=== PATIENT | female | born 1965 | race Caucasian/White ===

== ENCOUNTER 2017-05-31 16:19 | Emergency (ER) | payer BC | END 2017-05-31 17:35 | disposition left against medical advice (07) | LOC: UCCORT 16:19 | DX: J02.9 Acute pharyngitis, unspecified (principal); R05 Cough; Z53.21 Procedure and treatment not carried out due to patient leaving prior to being seen by health care provider ==

== ENCOUNTER 2017-06-06 10:20 | Emergency (ER) | payer BC ==
[2017-06-06 10:39] VITALS: BP 128/112
--- NOTE | 2017-06-06 11:23 | UC ---
Respiratory Complaint HPI - HPI Summary HPI Summary: Pt presents with c/o cough, wheezing, chest congestion and SOB with recumbent position. Pt is an asthmatic and smoker. Pt is compliant with prescribed medications. 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 Pt reports improved SOB and wheezing post treatment. - History of Current Complaint Chief Complaint: UCRespiratory Stated Complaint: COUGH,CONGESTION Time Seen by Provider: 06/06/17 10:43 Hx Obtained From: Patient ?: No Onset/Duration: Gradual Onset, Lasting Weeks - 1, Worse Since - onset Timing: Constant Severity Initially: Mild Severity Currently: Mild Pain Intensity: 0 Pain Scale Used: 0-10 Numeric Character: Cough: Nonproductive Aggravating Factors: Exertion, Deep Breaths, Recumbent Position Alleviating Factors: Other - nebulizer treatment Associated Signs And Symptoms: Positive: Wheezing, URI, Nasal Congestion - Risk Factors Pulmonary Embolism Risk Factors: Smoking Cardiac Risk Factors: Smoking Pseudomonas Risk Factors: Chronic Lung Disease - asthma Tuberculosis Risk Factors: Smoking - Allergies/Home Medications Allergies/Adverse Reactions: Allergies Allergy/AdvReac Type Severity Reaction Status Date / Time Sulfa Antibiotics Allergy Hives Verified 06/06/17 10:32 Home Medications: Home Medications Albuterol HFA INHALER* [Ventolin HFA Inhaler*] 1 - 2 puff INH Q4H PRN 06/06/17 [ History Confirmed 06/06/17] Albuterol/Ipratropium NEB.KAYLEE* [Duoneb (Albuterol 2.5 MG/Ipratropium 0.5 MG)] 1 neb INH ONCE 06/06/17 [History Confirmed 06/06/17] Budesonide/Formote 160/4.5(NF) [Symbicort 160/4.5 (NF)] 2 puff INH BID 06/06/17 [History Confirmed 06/06/17] FLUoxetine CAP* [Prozac CAP*] 40 mg PO DAILY 06/06/17 [History Confirmed ] guaiFENesin ER TAB [Mucinex*] 1,200 mg PO BID PRN 06/06/17 [History Confirmed ] PMH/Surg Hx/FS Hx/Imm Hx Previously Healthy: Yes Respiratory History: Asthma - Surgical History Surgical History: Yes Surgery Procedure, Year, and Place: Quintuple Bypass, 2009, [facility]; Right Knee Arthroscopy, ~1999, [place]; Facial Reconstruction s/p Accident, ~1985, [facility] - Family History Known Family History: Positive: Respiratory Disease - Social History Occupation: Employed Full-time Lives: With Family Alcohol Use: Occasionally Substance Use Type: None Smoking Status (MU): Heavy Every Day Tobacco Smoker Type: Cigarettes Amount Used/How Often: 1/2 PPD Length of Time of Smoking/Using Tobacco: Since Age 18 Have You Smoked in the Last Year: Yes - Immunization History Most Recent Influenza Vaccination: Not the Season Review of Systems Constitutional: Negative Skin: Negative Eyes: Negative ENT: Other - nasal congestion Respiratory: Shortness Of Breath, Cough, Other - wheezing Cardiovascular: Negative Gastrointestinal: Negative Genitourinary: Negative Motor: Negative Neurovascular: Negative Musculoskeletal: Negative Neurological: Negative Psychological: Negative Is Patient Immunocompromised?: No All Other Systems Reviewed And Are Negative: Yes Physical Exam Triage Information Reviewed: Yes Appearance: Ill-Appearing Vital Signs: Initial Vital Signs Temp 97.7 F 06/06/17 10:29 Pulse 76 06/06/17 10:29 Resp 20 06/06/17 10:29 BP 128/112 06/06/17 10:29 Pulse Ox 95 06/06/17 10:29 Vital Signs Reviewed: Yes Eye Exam: Normal ENT Exam: Other ENT: Positive: Nasal congestion Dental: Positive: Gross Decay/Caries @ Neck exam: Normal Respiratory Exam: Other Respiratory: Positive: No respiratory distress, Rhonchi Cardiovascular Exam: Normal Musculoskeletal Exam: Normal Neurological Exam: Normal Psychological Exam: Normal Skin Exam: Normal Diagnostic Evaluation - Laboratory O2 Sat by Pulse Oximetry: 95 Respiratory Course/Dx - Differential Dx/Diagnosis Differential Diagnosis/HQI/PQRI: Asthma, Bronchitis, Other - pneumonia Provider Diagnoses: Bronchitis Discharge - Discharge Plan Condition: Stable Disposition: HOME Prescriptions: Albuterol/Ipratropium NEB.KAYLEE* [Duoneb (Albuterol 2.5 MG/Ipratropium 0.5 MG)] 1 neb INH Q4H PRN #1 box PRN Reason: Sob/Wheezing Azithromycin TAB* [Zithromax TAB (Z-BEN) 250 mg #6 tabs] 2 tab PO .TODAY, THEN 1 DAILY #1 ben Benzonatate CAP* [Tessalon 100 MG CAP*] 100 mg PO TID PRN #30 cap PRN Reason: Cough methylPREDNISolone TAB* [Medrol TAB*] 4 - 8 mg PO .SEE BEN #1 ben Patient Education Materials: Acute Bronchitis (ED) Referrals: Non Staff,Doctor [Medical Doctor] - If Needed
== END 2017-06-06 11:05 | disposition home or self-care (01) ==
LOC: UCCORT 10:20
DX: J45.909 Unspecified asthma, uncomplicated (principal); Z95.1 Presence of aortocoronary bypass graft; F17.210 Nicotine dependence, cigarettes, uncomplicated; Z88.2 Allergy status to sulfonamides
CPT/HCPCS: 99212; G0463

== ENCOUNTER 2018-01-03 17:33 | Emergency (ER) | payer BC ==
[2018-01-03 18:22] VITALS: BP 136/84
[2018-01-03] MEDS ORDERED: predniSONE TAB* 20 MG PO ONE (18:53)
[2018-01-03] MEDS ORDERED: Albuterol/Ipratropium NEB.SOL* Albuterol 2.5 MG/Ipratropium 0.5 MG 3 ML INH ONE (18:53)
--- NOTE | 2018-01-03 18:54 | UC ---
Respiratory Complaint HPI - HPI Summary HPI Summary: Patient is to the urgent care this afternoon with cough and chest tightness sinus fullness pressure has been worsening over the past 5 days. - History of Current Complaint Chief Complaint: UCRespiratory Stated Complaint: CONGESTION AND COUGHING Time Seen by Provider: 01/03/18 18:47 Hx Obtained From: Patient ?: No Onset/Duration: Sudden Onset, Lasting Days - 5, Still Present Timing: Constant Severity Initially: Moderate Severity Currently: Moderate Pain Scale Used: 0-10 Numeric Character: Cough: Productive Aggravating Factors: Exertion, Deep Breaths Alleviating Factors: Bronchodilator Associated Signs And Symptoms: Positive: Dyspnea, Wheezing, Nasal Congestion, Sinus Discomfort - Allergies/Home Medications Allergies/Adverse Reactions: Allergies Allergy/AdvReac Type Severity Reaction Status Date / Time Sulfa (Sulfonamide Allergy Hives Verified 01/03/18 18:18 Antibiotics) Home Medications: Home Medications Ibuprofen TAB* [Motrin TAB* 600 MG] 600 mg PO Q6H PRN 01/03/18 [History Confirmed 01/03/18] PMH/Surg Hx/FS Hx/Imm Hx Previously Healthy: No Cardiovascular History: Cardiac Disease - Heart is a wart treatment like that Respiratory History: Asthma - Surgical History Surgical History: Yes Surgery Procedure, Year, and Place: Quintuple Bypass, 2009, [facility]; Right Knee Arthroscopy, ~1999, [place]; Facial Reconstruction s/p Accident, ~1985, [facility] - Family History Known Family History: Positive: Respiratory Disease - Social History Occupation: Employed Full-time Lives: With Family Alcohol Use: Occasionally Substance Use Type: None Smoking Status (MU): Heavy Every Day Tobacco Smoker Type: Cigarettes Amount Used/How Often: 1/2 PPD Length of Time of Smoking/Using Tobacco: Since Age 18 Have You Smoked in the Last Year: Yes Cessation Counseling: Patient Advised to Stop - Immunization History Most Recent Influenza Vaccination: Not the 2017/2017 Season Review of Systems Constitutional: Negative Skin: Negative Eyes: Negative ENT: Ear Ache, Nasal Discharge, Sinus Congestion, Sinus Pain/Tenderness Respiratory: Cough Cardiovascular: Negative Gastrointestinal: Negative Genitourinary: Negative Motor: Negative Neurovascular: Negative Musculoskeletal: Negative Neurological: Negative Psychological: Negative Is Patient Immunocompromised?: No All Other Systems Reviewed And Are Negative: Yes Physical Exam Triage Information Reviewed: Yes Appearance: Ill-Appearing, Pain Distress, Obese Vital Signs: Initial Vital Signs Temp 99.1 F 01/03/18 18:16 Pulse 95 01/03/18 18:16 Resp 22 01/03/18 18:16 BP 136/84 01/03/18 18:16 Pulse Ox 96 01/03/18 18:16 Vital Signs Reviewed: Yes Eye Exam: Normal Eyes: Positive: Conjunctiva Clear ENT Exam: Normal ENT: Positive: Normal ENT inspection, Hearing grossly normal, Pharynx normal, Nasal congestion, TMs normal, Sinus tenderness, Uvula midline. Negative: Tonsillar swelling, Tonsillar exudate, Trismus, Muffled voice, Hoarse voice, Dental tenderness Dental Exam: Normal Neck exam: Normal Neck: Positive: Supple, Nontender, No Lymphadenopathy Respiratory Exam: Normal Respiratory: Positive: Chest non-tender, No respiratory distress, Decreased breath sounds, Wheezing. Negative: Normal breath sounds, No accessory muscle use Cardiovascular Exam: Normal Cardiovascular: Positive: RRR, No Murmur, Pulses Normal, Brisk Capillary Refill Musculoskeletal Exam: Normal Musculoskeletal: Positive: Strength Intact, ROM Intact, No Edema Neurological Exam: Normal Neurological: Positive: Alert, Muscle Tone Normal Psychological Exam: Normal Skin Exam: Normal UC Diagnostic Evaluation - Laboratory O2 Sat by Pulse Oximetry: 96 Re-Evaluation - Re-Evaluation First Eval Change: Improved - Aafter duoneb Respiratory Course/Dx - Course Course Of Treatment: Prednisone DuoNeb Augmentin Mucinex increase fluids follow with PCP encourage smoking cessation - Differential Dx/Diagnosis Provider Diagnoses: Acute rhinosinusitis, bronchitis with bronchospasm nicotine dependent Discharge - Sign-Out/Discharge Documenting (check all that apply): Discharge/Admit/Transfer - Discharge Plan Condition: Stable Disposition: HOME Prescriptions: Albuterol/Ipratropium NEB.KAYLEE* [Duoneb (Albuterol 2.5 MG/Ipratropium 0.5 MG)] 1 neb INH Q4H PRN #1 box PRN Reason: wheeze chest tightness Amoxicillin/Clavulanate TAB* [Augmentin TAB 875*] 875 mg PO BID #20 tab predniSONE TAB* [Deltasone TAB*] 20 mg PO DAILY #9 tab Patient Education Materials: Sinusitis (ED), Bronchospasm (ED) Referrals: [facility] [place] [facility] [place]] - If Needed No Primary Care Phys,NOPCP [Primary Care Provider] - Additional Instructions: Primary care doctor in the next 1-2 days occluded emergency department should symptoms worsen in anyway - Billing Disposition and Condition Condition: STABLE Disposition: HOME
== END 2018-01-03 19:28 | disposition home or self-care (01) ==
LOC: UCCORT 17:33
DX: J01.90 Acute sinusitis, unspecified (principal); J40 Bronchitis, not specified as acute or chronic; F17.210 Nicotine dependence, cigarettes, uncomplicated; Z88.2 Allergy status to sulfonamides
CPT/HCPCS: 99212; A9270-GY; G0463; J7512

== ENCOUNTER 2018-05-29 17:36 | Emergency (ER) | payer BC ==
--- OUTSIDE RECORDS SUMMARY | 2018-05-29 18:29 | XMS REPORT ---
:1965 External Reference #:[id number] Author Organization [facility] Address [address], [address] [place] [address] Phone [phone] Care Team Providers Name Role Phone Miranda Claros MD Care Team Information Lead Sprinkler Unavailable Gisella Kim PA Primary Care Physician Unavailable Payers Type Date Identification Numbers Payment Provider Subscriber Commercial Policy Number: [id number] Giftyus Rahel Dubois PayID: [id number] [address] [address] [place] [address] Problems Date Description Provider Status Onset: 07/04/2010 Mixed hyperlipidemia Active Onset: 08/31/2003 Derangement of knee Active Onset: 02/17/[address], Active MSN, SENIOR BRAND MANAGER Onset: 02/17/[address], Active MSN, SENIOR BRAND MANAGER Onset: 02/17/2018 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 Maternal uncle and grandfather also with premature CAD. Mother Kidney Disease Onset: (age 43 First Brother CAD Many stents in place Years) Paternal Grandfather due to Unknown () Causes Paternal Grandmother due to Unknown () Causes : (age Maternal Grandfather due to CA 50 Years) Maternal Grandmother No Current Problems Social History Type Date Description Comments Lives With Brother Diet Patient is on a low sodium diet Diet Patient is on a low fat diet Occupation Currently Working Nurse, [employer] ADL's/IADL's Independent with all ADL's ADL's/IADL's Independent with all IADL's Cigarette Use currently smokes 1/2 Pack Daily ETOH Use Occasionally consumes alcohol Smoking Light tobacco smoker (10 or fewer cigarettes/day) Daily Caffeine Consumes on average 1 six pack per day Allergies, Adverse Reactions, Alerts Date Description Reaction Status Severity Comments Sulfa Drugs active 07/04/2010 Toradol active pt states just sensitivity 05/08/2018 Reglan active Medications Medication Date Status Form Strength Qnty SIG Indications Ordering Provider Omeprazole 05/08/ Active Capsules 40mg 45caps 1 by mouth I25.119 Ariana 2018 twice a Kirstie day for Gavin one week , MSN, then once SENIOR BRAND MANAGER a day thereafter . Ranexa 05/08/ Active Tablets ER 500mg 180tab 1 by mouth I25.119 Ariana, 2018 12HR s twice a Kirstie day OWEN Alonso, SENIOR BRAND MANAGER Escitalopram 04/30/ Active Tablets 20mg 30tabs 1 by mouth F33.1 Mario , Oxalate 2018 every day MD Rhonda Nortriptyline 04/30/ Active Capsules 25mg 60caps 1 tab by F33.1 Mario HCL 2018 mouth MD Rhonda every day for 1 week, then increase to twice daily Amlodipine 04/24/ Active Tablets 2.5mg 90tabs 1 by mouth I25.119 Ariana Besylate 2018 every day Kirstie Alonso , MSN, SENIOR BRAND MANAGER Furosemide 04/24/ Active Tablets 20mg 1 by mouth R60.9 Ariana, 2018 every day Kirstie as needed Gavin for edema , MSN, SENIOR BRAND MANAGER Plavix 03/04/ Active Tablets 75mg 14tabs 1 by mouth Patricia 2018 every day , Tobias Horn M.D., [facility] Aspirin 02/17/ Active Tablets DR 81mg [address], 2018 every day OWEN Sales, SENIOR BRAND MANAGER Rosuvastatin 02/17/ Active Tablets 20mg 30tabs 1 by mouth E78.2 Ariana Calcium 2018 every day OWEN Sales, SENIOR BRAND MANAGER Nitroglycerin 02/17/ Active Tablets 0.4mg 25tabs 1 tablet I25.10 Ariana , 2018 Sub under Kirstie tongue Gavin every 5 , MSN, minutes x3 SENIOR BRAND MANAGER as needed for chest pain Olmesartan 02/17/ Active Tablets 20-12.5mg 30tabs 1 tab by I10 Ariana Medoxomil/G[place] 2018 mouth Kirstie chlorothiazide every day OWEN Alonso, SENIOR BRAND MANAGER Symbicort / Active Aerosol 160-4.5mcg 2 puff Unknown 0000 /Act twice a day Duoneb / Active Solution 0.5-2.5(3) as needed Unknown 0000 mg/3ML Vitamin B / Active 1 tablet Unknown Complex 0000 po daily Proair / Active Aerosol 108(90Base as needed Unknown Respiclick 0000 ) mcg/Act for shortness of breath, up to every 4 hours Escitalopram 03/26/ Hx Tablets 20mg 30tabs 1 by mouth F33.1 Mariana, Oxalate 2018 - every day Marybeth, 04/30/ M.D. 2018 Furosemide 03/26/ Hx Tablets 20mg 30tabs 1 by mouth R60.9 Mariana, 2018 - every day Marybeth, 04/24/ M.D. 2018 Diclofenac 03/26/ Hx Gel 1% 200gm apply 4g Mariana, Sodium 2018 to Marybeth, affected M.D. ankle twice a day Wellbutrin XL 02/19/ Hx Tablets ER 150mg 60tabs tab by F33.1 Mariana, 2018 24HR mouth Marybeth, twice M.D. daily Escitalopram 01/29/ Hx Tablets 10mg 30tabs 1 by mouth F33.1 Mariana, Oxalate 2017 - every day Marybeth, 03/26/ M.D. 2018 Alprazolam 01/29/ Hx Tablets 0.25mg 20tabs 1-2 tabs F41.9 Mariana, 2018 every 6 Marybeth, hours as M.D. needed anxiety attack.Ref erence #: [id number] Omeprazole 06/21/ Hx Capsules 40mg 30caps 1 tab by 786.59 Ariana, 2010 - DR mouth Kirstie 01/29/ every day Gavin 2017 , MSN, SENIOR BRAND MANAGER Ambien 03/14/ Hx Tablets 5mg 30tabs 1 po qhs 786.59 Nida, 2010 prn sleep Jose Alfredo Sanchez MD, PhD Ranexa 03/14/ Hx Tablets ER 1000mg 60tabs Take One 414.01 Nida, 2010 - 12HR Tablet By Jose Alfredo Sanchez, 01/29/ Mouth , PhD 2018 Twice Daily Ranexa 02/19/ Hx Tablets ER 500mg 60tabs 1 po bid 786.05 Ariana, 2010 - 12HR Kirstie 2010 , MSN, SENIOR BRAND MANAGER Plavix 01/22/ Hx Tablets 75mg 30tabs 1 po qd 414.01 Nida, 2010 - Jose Alfredo Sanchez, 01/29/ MD, PhD 2018 Nitroglycerin 01/22/ Hx Tablets 0.4mg 25tabs 1 tab prn 414.01 Nida, 2010 - Sub chest Jose Alfredo Sanchez, 01/29/ pain, january MD, PhD 2018 repeat q 5 minutes x3 Isosorbide 01/22/ Hx Tablets ER 30mg 30tabs Take One 414.01 Nida, Mononitrate ER 2010 - 24HR Tablet By Jose Alfredo Sanchez, 01/29/ Mouth , PhD 2018 Every Day Plavix 07/04/ Hx Tablets 75mg 90.0ta 1 po qd 786.05 Ariana, 2009 bs Kirstie Alonso , MSN, SENIOR BRAND MANAGER Aspirin / Hx Tablets 325mg [address], - Kirstie 2017 , MSN, SENIOR BRAND MANAGER Crestor / Hx Tablets 10mg 90tabs [address], Kirstie Gavin , MSN, SENIOR BRAND MANAGER Bystolic / Hx Tablets 5mg 30tabs tab po qd Lane, - Kirstie 2017 , MSN, SENIOR BRAND MANAGER Prozac / Hx Capsules 40mg [address], - Kirstie 2017 , MSN, SENIOR BRAND MANAGER Lortab 5 / Hx Tablets 5-500mg 20tabs 1-[address], q4-6h prn Kirstie Alonso , MSN, SENIOR BRAND MANAGER Furosemide / Hx Tablets 40mg 180tab 1 po qd Unknown 0000 - s 2017 Vitamin B / Hx Tablets 1 po qd Unknown Complex - 2010 Crestor / Hx Tablets 20mg 1 po qd Unknown - 2017 Albuterol / Hx As needed Unknown Inhaler 0000 Probiotic / Hx 1 cap po Unknown 0000 daily otc Vital Signs Date Vital Result Comment 05/08/2018 BP Systolic Sitting Right Arm 126 mmHg BP Diastolic Sitting Right Arm 78 mmHg Heart Rate 79 /min Respiratory Rate 20 /min Height 66 inches 5'6" Weight 276.00 lb BMI (Body Mass Index) 44.5 kg/m2 BSA (Body Surface Area) 2.29 m2 Kimper body weight in kilograms 59 O2 % BldC Oximetry 97 % 04/30/2018 BP Systolic 122 mmHg BP Diastolic 74 mmHg Heart Rate 89 /min Respiratory Rate 20 /min Height 66 inches 5'6" Weight 273.00 lb BMI (Body Mass Index) 44.1 kg/m2 BSA (Body Surface Area) 2.28 m2 Kimper body weight in kilograms 59 O2 % BldC Oximetry 94 % 04/24/2018 BP Systolic Sitting Left Arm 124 mmHg BP Diastolic Sitting Left Arm 80 mmHg Heart Rate 64 /min Respiratory Rate 18 /min Height 66 inches 5'6" Weight 283.00 lb BMI (Body Mass Index) 45.7 kg/m2 BSA (Body Surface Area) 2.32 m2 Kimper body weight in kilograms 59 O2 % BldC Oximetry 95 % Room air 03/26/2018 BP Systolic Sitting Left Arm 134 mmHg BP Diastolic Sitting Left Arm 80 mmHg Body Temperature 98.5 F Heart Rate 68 /min Weight 283.25 lb 02/19/2018 BP Systolic Sitting Left Arm 126 mmHg BP Diastolic Sitting Left Arm 80 mmHg Body Temperature 97.9 F Heart Rate 91 /min Weight 283.25 lb O2 % BldC Oximetry 93 % 02/17/2018 BP Systolic Sitting Right Arm 154 mmHg BP Diastolic Sitting Right Arm 92 mmHg Heart Rate 64 /min Respiratory Rate 18 /min Height 66 inches 5'6" Weight 287.00 lb BMI (Body Mass Index) 46.3 kg/m2 BSA (Body Surface Area) 2.33 m2 Kimper body weight in kilograms 59 O2 % BldC Oximetry 97 % Ra 01/29/2018 BP Systolic Sitting Left Arm 120 mmHg BP Diastolic Sitting Left Arm 68 mmHg Body Temperature 98.2 F Heart Rate 82 /min Height 66 inches 5'6" Weight 287.00 lb BMI (Body Mass Index) 46.3 kg/m2 BSA (Body Surface Area) 2.33 m2 Kimper body weight in kilograms 59 O2 % BldC Oximetry 91 % 06/21/2011 BP Systolic Sitting Left Arm 136 mmHg BP Diastolic Sitting Left Arm 90 mmHg Heart Rate 64 /min regular Respiratory Rate 16 /min Height 66 inches 5'6" Weight 282.00 lb BMI (Body Mass Index) 45.5 kg/m2 03/14/2011 BP Systolic Sitting Right Arm 128 mmHg BP Diastolic Sitting Right Arm 90 mmHg Heart Rate 62 /min regular Respiratory Rate 16 /min Height 66 inches 5'6" Weight 284.00 lb BMI (Body Mass Index) 45.8 kg/m2 02/19/2011 BP Systolic Sitting Right Arm 114 mmHg BP Diastolic Sitting Right Arm 76 mmHg Heart Rate 48 /min regular Respiratory Rate 16 /min Height 66 inches 5'6" Weight 290.00 lb BMI (Body Mass Index) 46.8 kg/m2 01/22/2011 BP Systolic Sitting Right Arm 130 mmHg BP Diastolic Sitting Right Arm 82 mmHg Heart Rate 60 /min regular Respiratory Rate 16 /min Height 66 inches 5'6" Weight 293.00 lb BMI (Body Mass Index) 47.3 kg/m2 08/23/2010 BP Systolic Sitting Left Arm 132 mmHg BP Diastolic Sitting Left Arm 78 mmHg Heart Rate 76 /min Respiratory Rate 18 /min Weight 272.00 lb 07/24/2010 BP Systolic Sitting Right Arm 130 mmHg BP Diastolic Sitting Right Arm 86 mmHg Heart Rate 66 /min Respiratory Rate 20 /min Weight 269.00 lb 07/04/2010 BP Systolic Sitting Right Arm 132 mmHg BP Diastolic Sitting Right Arm 100 mmHg BP Systolic Sitting Left Arm 142 mmHg BP Diastolic Sitting Left Arm 92 mmHg Height 67.3 inches 5'7.30" Weight 277.00 lb BMI (Body Mass Index) 43.0 kg/m2 Results Test Date Test Result H/L Range Note Basic Metabolic Panel 03/26/2018 Glucose 98 mg/dL 74-106 1 BUN 17 mg/dL 7-18 1 Creatinine 1.0 mg/dL 0.6-1.3 1 Glom Filtration Rate, Estimate >60 mL/min >60 1 If >60 mL/min >60 1, 2 BUN/Creat 17.0 ratio 1 Sodium 144 mmol/L 136-145 1 Potassium 3.5 mmol/L 3.5-5.1 1 Chloride 110 mmol/L High 98-107 1 Carbon Dioxide 27 mmol/L 21-32 1 Anion Gap 7 mEq/L Low 8-16 1 Calcium 8.9 mg/dL 8.5-10.1 1 Reflex add FT3? Y 1 Reflex add FT4? Y 1 TSH Reflex FT4 And/Or FT3 03/26/2018 Thyroid Stim Hormone 1.85 uIU/mL 0.30-4.20 1 Reflex add FT3? Y 1 Reflex add FT4? Y 1 CBS W/Automated Diff 02/17/2018 White Blood Count 8.3 K/uL 3.1-10.7 3 Red Blood Count 4.40 M/uL 3.90-5.40 3 Hemoglobin 13.5 gm/dL 11.6-15.8 3 Hematocrit 40.9 % 36.0-46.1 3 Mean Cell Volume 93.0 fl 80.9-99.0 3 Mean Corpuscular HGB 30.7 pg 25.9-32.7 3 Mean Corpuscular HGB Conc 33.0 g/dL 30.8-34.3 3 Platelet Count 221 K/uL 155-360 3 Red Cell Distri Width SD 44.7 fl 3-47 3 Red Cell Distri Width %CV 13.4 % 11.7-14.4 3 Mean Platelet Volume 9.9 fL 8.9-12.4 3 Neut% 58.1 % 40.4-72.8 3 Lymph % 32.9 % 20.0-42.0 3 [place] % 6.3 % 4.3-13.2 3 Eo% 2.5 % 0.0-6.6 3 Bas% 0.2 % 0.0-1.1 3 Neut# 4.82 K/uL 1.8-7.0 3 Lymph # 2.73 K/uL 1.0-4.0 3 [place] # 0.52 K/uL 0.3-0.9 3 Eos # 0.21 K/uL 0.0-0.5 3 Baso # 0.02 K/uL 0.0-0.1 3 Comprehensive Metabolic Panel 02/17/2018 Glucose 93 mg/dL 74-106 3 BUN 16 mg/dL 7-18 3 Creatinine 0.9 mg/dL 0.6-1.3 3 Glom Filtration Rate, Estimate >60 mL/min >60 3 If >60 mL/min >60 3, 4 BUN/Creat 17.7 ratio 3 Sodium 140 mmol/L 136-145 3 Potassium 3.6 mmol/L 3.5-5.1 3 Chloride 107 mmol/L 98-107 3 Carbon Dioxide 24 mmol/L 21-32 3 Anion Gap 9 mEq/L 8-16 3 Calcium 8.5 mg/dL 8.5-10.1 3 Total Protein 7.1 g/dL 6.4-8.2 3 Albumin 3.6 g/dL 3.4-5.0 3 Globulin 3.5 g/dL 1.9-4.3 3 Alb/Glob 1.0 ratio 3 Bilirubin,Total 0.1 mg/dL Low 0.2-1.0 3 Sgot/Ast 17 U/L 15-37 3 SGPT/Alt 33 U/L 12-78 3 Alkaline Phosphatase 95 U/L 45-117 3 Reflex add FT3? Y 3 Reflex add FT4? Y 3 LDL Cholesterol Profile 02/17/2018 Cholesterol 267 mg/dL High <200 3, 5 Triglycerides 200 mg/dL High <150 3, 6 HDL Cholesterol 38 mg/dL Low >40 3, 7 LDL-Cholesterol 189 mg/dL < 100 3, 8 Reflex add FT3? Y 3 Reflex add FT4? Y 3 TSH Reflex FT4 And/Or FT3 02/17/2018 Thyroid Stim Hormone 3.56 uIU/mL 0.30-4.20 3 Reflex add FT3? Y 3 Reflex add FT4? Y 3 Laboratory test finding 07/16/2014 Thyroid Stim Hormone 1.30 uIU/mL 0.36- 3.74 CBC 06/19/2011 White Blood Count 9.5 K/uL 3.1-10.7 Red Blood Count 4.46 M/uL 3.90-5.40 Hemoglobin 13.2 gm/dL 11.6-15.8 Hematocrit 40.3 % 36.0-46.1 Mean Cell Volume 90.4 fl 80.9-99.0 Mean Corpuscular HGB 29.6 pg 25.9-32.7 Mean Corpuscular HGB Conc 32.8 g/dL 30.8-34.3 Platelet Count 294 K/uL 155-360 Red Cell Distri Width %CV 14.9 % High 11.7-14.4 Mean Platelet Volume 11.2 fL 8.9-12.4 Comprehensive Metabolic Panel 06/19/2011 Glucose 106 mg/dL 76-115 BUN 17 mg/dL 5-23 Creatinine 1.1 mg/dL 0.5-1.4 Glom Filtration Rate, Estimate 57 mL/min >60 If >60 mL/min >60 9 BUN/Creat 15.4 ratio Sodium 139 mmol/L 136-145 Potassium 4.2 mmol/L 3.5-5.1 Chloride 101 mmol/L 98-107 Carbon Dioxide 27 mEq/L 18-29 Anion Gap 15 mEq/L 8-16 Calcium 9.8 mg/dL 8.5-10.1 Total Protein 7.7 g/dL 6.3-8.0 Albumin 4.3 g/dL 3.5-5.0 Globulin 3.4 g/dL 1.9-4.3 Alb/Glob 1.3 ratio Bilirubin,Total 0.3 mg/dL 0.2-1.2 Sgot/Ast 17 U/L 16-40 SGPT/Alt 30 U/L 30-65 Alkaline Phosphatase 99 U/L 50-136 LDL Cholesterol Profile 06/19/2011 Cholesterol 260 mg/dL High 120-200 Triglycerides 210 mg/dL 16-231 HDL Cholesterol 41 mg/dL 29-83 LDL-Cholesterol 177 mg/dL 62-185 Glycohemoglobin A1c 06/19/2011 Glycohemoglobin (A1c) 6.0 % 4.8-6.0 10 eAG 126 mg/dL CBS W/Automated Diff 01/22/2011 White Blood Count 9.0 K/uL 3.1-10.7 Red Blood Count 4.17 M/uL 3.90-5.40 Hemoglobin 11.9 gm/dL 11.6-15.8 Hematocrit 36.0 % 36.0-46.1 Mean Cell Volume 86.3 fl 80.9-99.0 Mean Corpuscular HGB 28.5 pg 25.9-32.7 Mean Corpuscular HGB Conc 33.1 g/dL 30.8-34.3 Platelet Count 256 K/uL 155-360 Red Cell Distri Width %CV 14.2 % 11.7-14.4 Mean Platelet Volume 10.5 fL 8.9-12.4 Neut% 62.3 % 40.4-72.8 Lymph % 29.1 % 17.0-46.1 [place] % 7.3 % 4.3-13.2 Eo% 1.1 % 0.0-6.6 Bas% 0.2 % 0.0-1.1 Neut# 5.62 K/uL 1.0-7.0 Lymph # 2.63 K/uL 0.8-3.4 [place] # 0.66 K/uL 0.3-0.9 Eos # 0.10 K/uL 0.0-0.5 Baso # 0.02 K/uL 0.0-0.1 Red Cell Distri Width SD 43.2 fl 3-47 Basic Metabolic Panel 01/22/2011 Glucose 105 mg/dL 76-115 BUN 13 mg/dL 5-23 Creatinine 1.1 mg/dL 0.5-1.4 Glom Filtration Rate, Estimate 57 mL/min >60 If >60 mL/min >60 11 BUN/Creat 11.8 Sodium 141 mEq/L 136-145 Potassium 3.3 mEq/L Low 3.5-5.1 Chloride 104 mEq/L 98-107 Carbon Dioxide 30 mEq/L 21-32 Anion Gap 10 mEq/L 8-16 Calcium 8.9 mg/dL 8.5-10.1 Basic Metabolic Panel 07/06/2010 Glucose 111 mg/dL 76-115 BUN 19 mg/dL 5-23 Creatinine 1.1 mg/dL 0.5-1.4 Glom Filtration Rate, Estimate 57 mL/min >60 If >60 mL/min >60 12 BUN/Creat 17.2 Sodium 135 mEq/L Low 136-145 Potassium 4.3 mEq/L 3.5-5.1 Chloride 102 mEq/L 98-107 Carbon Dioxide 25 mEq/L 21-32 Anion Gap 12 mEq/L 8-16 Calcium 9.1 mg/dL 8.5-10.1 CBS W/Automated Diff 07/06/2010 White Blood Count 9.5 K/uL 3.1-10.7 Red Blood Count 4.52 M/uL 3.90-5.40 Hemoglobin 13.4 gm/dL 11.6-15.8 Hematocrit 40.6 % 36.0-46.1 Mean Cell Volume 89.8 fl 80.9-99.0 Mean Corpuscular HGB 29.6 pg 25.9-32.7 Mean Corpuscular HGB Conc 33.0 g/dL 30.8-34.3 Platelet Count 271 K/uL 155-360 Red Cell Distri Width %CV 14.0 % 11.7-14.4 Mean Platelet Volume 10.8 fL 8.9-12.4 Neut% 63.3 % 40.4-72.8 Lymph % 27.6 % 17.0-46.1 [place] % 6.6 % 4.3-13.2 Eo% 2.2 % 0.0-6.6 Bas% 0.3 % 0.0-1.1 Neut# 6.0 K/uL 1.0-7.0 Lymph # 2.6 K/uL 0.8-3.4 [place] # 0.6 K/uL 0.3-0.9 Eos # 0.2 K/uL 0.0-0.5 Baso # 0.0 K/uL 0.0-0.1 Red Cell Distri Width SD 44.3 fl 3-47 1 R60.9 2 Note: Persistent reduction for 3 months or more in an eGFR <60 mL/min/1.73 m2 defines CKD. Patients with eGFR values >/=60 mL/min/1.73 m2 may also have CKD if evidence of persistent proteinuria is present. The original MDRD equation for estimated GFR is not valid for patients less than 18 years of age. Additional information may be found at www.kdoqi.org. 3 I25.10 4 Note: Persistent reduction for 3 months or more in an eGFR <60 mL/min/1.73 m2 defines CKD. Patients with eGFR values >/=60 mL/min/1.73 m2 may also have CKD if evidence of persistent proteinuria is present. The original MDRD equation for estimated GFR is not valid for patients less than 18 years of age. Additional information may be found at www.kdoqi.org. 5 Reference Guidelines*: Desirable: ........... < 200 mg/dL Borderline High: ..... 200-239 mg/dL High: ................ >=240 mg/dL * The National Cholesterol Education Program (NCEP) 6 Reference Guidelines*: Normal: ............. < 150 mg/dL Borderline High: .... 150-199 mg/dL High: ............... 200-499 mg/dL Very High: .......... > 500 mg/dL * Source: National Cholesterol Education Program (NCEP) 7 Reference Guidelines*: Low HDL: ..... < 40 mg/dL Normal: ..... 40-60 mg/dL Desirable: ... > 60 mg/dL *The National Cholesterol Education Program(NCEP) 8 Reference Guidelines*: Optimal:........... <100 mg/dL Near Optimal....... 100-129 mg/dL Borderline High.... 130-159 mg/dL High............... 160-189 mg/dL Very High.......... >=190 mg/dL * Source: National Cholesterol Education Program (NCEP) 9 Note: Persistent reduction for 3 months or more in an eGFR <60 mL/min/1.73 m2 defines CKD. Patients with eGFR values >/=60 mL/min/1.73 m2 may also have CKD if evidence of persistent proteinuria is present. The original MDRD equation for estimated GFR is not valid for patients less than 18 years of age. Additional information may be found at www.kdoqi.org. 10 A1c value between 5.7% and 6.4% is considered at increased risk for diabetes. A1c value greater than 6.5 % is considered essentially diagnostic for Type II diabetes. Current guidelines recommend a treatment goal of <7% for diabetic patients. This method will measure glycosylated hemoglobin variants, HbS, HbG, HbH, HbWayne, HbC, HbE, etc. Other hemoglobin- opathies may give incorrect results with this test. 11 Note: Persistent reduction for 3 months or more in an eGFR <60 mL/min/1.73 m2 defines CKD. Patients with eGFR values >/=60 mL/min/1.73 m2 may also have CKD if evidence of persistent proteinuria is present. The original MDRD equation for estimated GFR is not valid for patients less than 18 years of age. Additional information may be found at www.kdoqi.org. 12 Note: Persistent reduction for 3 months or more in an eGFR <60 mL/min/1.73 m2 defines CKD. Patients with eGFR values >/=60 mL/min/1.73 m2 may also have CKD if evidence of persistent proteinuria is present. The original MDRD equation for estimated GFR is not valid for patients less than 18 years of age. Additional information may be found at www.kdoqi.org. Procedures Date CPT Code Description Status 04/30/2018 25132 Brief Emotional/Behav Assessment W/ Scoring Doc Per Completed Standard Inst 04/24/2018 13837 EKG-Tracing And Report Completed 02/28/2018 13757 Stress Test Interpre And Report Only Completed 02/28/2018 32217 Stress Test Physician Super Only Completed 02/28/2018 08741 Myocardial Imaging Tomographic Multiple Study AT Rest Completed Or Stress 02/17/2018 71850 EKG-Tracing And Report Completed 07/16/2014 02968 EKG Interpretation And Report Only Completed 03/14/2011 44035 EKG-Tracing And Report Completed 03/14/2011 25258 EKG-Tracing And Report Completed 03/14/2011 69099 Event Monitor Inter/Review Only Completed 01/15/2011 72007 Echocardiogram Complete Completed 08/18/2010 81580 Stress Test Interpre And Report Only Completed 08/18/2010 75568 Stress Test Physician Super Only Completed 08/18/2010 08081 Myocardial Imaging Tomographic Multiple Study AT Rest Completed Or Stress 07/24/2010 40286 EKG-Tracing And Report Completed 07/04/2010 21175 EKG-Tracing And Report Completed 06/26/2010 73313 Stress Test Interpre And Report Only Completed 06/26/2010 44055 Stress Test Physician Super Only Completed 06/26/2010 61479 Myocardial Imaging Tomographic Multiple Study AT Rest Completed Or Stress Encounters Type Date Location Provider CPT E/M Dx Office Visit 05/08/2018 8:20a Cardiology Office [address] [address] I25.119 Gavin, MSN, SENIOR BRAND MANAGER I10 E78.2 R60.9 Office Visit 04/30/2018 1:15p [place] [address] F33.1 E66.9 I10 E78.2 Z71.6 Z72.0 F17.210 Office Visit 04/24/2018 8:40a Cardiology Office [address] [address] I25.119 Gavin MSN, SENIOR BRAND MANAGER I10 E78.2 R60.9 E66.9 Office Visit 03/26/2018 1:00p Family [facility] [place] [address] F33.1 Z72.0 F41.9 E66.9 R60.9 I10 Office Visit 02/19/2018 1:15p [facility] [place] [address] I10 F33.1 Z72.0 F41.9 E66.9 Office Visit 02/17/2018 11:20a Cardiology Office [address], [address]122 R07.9 MSN, SENIOR BRAND MANAGER I25.10 I10 E78.2 Office Visit 01/29/2018 1:45p [facility] [place] [address] F33.1 Z72.0 F41.9 I25.10 Office Visit 07/15/2014 3:08p [facility] Jeremias Durant M.D. 32707 427.89 [facility] 780.4 Office Visit 07/15/2014 1:59p [place] [address] 427.89 780.4 Office Visit 06/21/2011 9:20a Cardiology Office [address], [address]292 786.59 MSN, SENIOR BRAND MANAGER 414.01 401.1 272.2 Office Visit 03/14/2011 1:40p Cardiology Office Aleisha Khan, ANP 07180 414.01 401.1 786.59 272.2 307.49 785.1 Office Visit 02/19/2011 1:40p Cardiology Office [address], [address]348 786.05 MSN, SENIOR BRAND MANAGER 414.01 401.1 272.4 305.1 Office Visit 01/22/2011 2:00p Cardiology Office Aleisha Khan, ANP 50999 414.01 401.1 305.1 786.05 Office Visit 08/23/2010 3:30p Cardiology Office Tobias Gomez, [address]268 414.01 Narendra, [facility] 401.1 305.1 786.05 278.01 Office Visit 07/24/2010 2:00p Cardiology Office [address], [address]60 414.01 MSN, SENIOR BRAND MANAGER 511.9 272.2 401.1 305.1 Office Visit 07/04/2010 1:20p Cardiology Office [address], [address]58 786.05 VINICIUS WEAVER 272.4 401.1 278.01 305.1 794.30 Plan of Care Future Appointment(s):06/18/2018 8:20 am - [address]irstie Lane, OWEN, SENIOR BRAND MANAGER at Cardiology Bchbjl3406/11/2018 1:45 pm - Gisella Kim PA at [facility]05/08 - [address], OWEN, FNPI25.119 Athscl heart disease of [place] cor art w unsp ang pctrsNew Medication:Omeprazole 40 mgRanexa 500 mgComments:I will start her on omeprazole and Ranexa. We will monitor her for further episodes of angina. I would like her to come in for Cardiac Rehab.I10 Essential (primary) hypertensionComments:No changes.E78.2 Mixed hyperlipidemiaComments:No changes.R60.9 Edema, unspecifiedComments:Decrease sodium to <2gm per day.AllFollow up:Follow up visit in one month.
--- OUTSIDE RECORDS SUMMARY | 2018-05-29 18:29 | XMS REPORT ---
:1965 External Reference #:[id number] Author Organization [facility] Address [address], [address] [place] [address] Phone [phone] Care Team Providers Name Role Phone Miranda Claros MD Care Team Information Wreath Inspector Unavailable Gisella Kim PA Primary Care Physician Unavailable Payers Type Date Identification Numbers Payment Provider Subscriber Commercial Policy Number: [id number] Rehan Rahel Dubois PayID: [id number] [address] [address] [place] [address] Problems Date Description Provider Status Onset: 07/04/2010 Mixed hyperlipidemia Active Onset: 08/31/2003 Derangement of knee Active Onset: 03/26/2018 Tobacco use DOLORES Helms Active Onset: 03/26/2018 Obesity DOLORES Helms Active Onset: 03/26/2018 Anxiety state DOLORES Helms Active Onset: 03/26/2018 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 Maternal uncle and grandfather also with premature CAD. Mother Kidney Disease Onset: (age 43 First Brother CAD Many stents in place Years) Paternal Grandfather due to Unknown () Causes Paternal Grandmother due to Unknown () Causes : (age Maternal Grandfather due to [place] 50 Years) Maternal Grandmother No Current Problems [...] 07/04/2010 Toradol active pt states just sensitivity Medications Medication Date Status Form Strength Qnty SIG Indications Ordering Provider Escitalopram 04/30/ Active Tablets 20mg 30tab 1 by mouth F33.1 Rhonda Oxalate 2018 s every day MD Mario Nortriptyline 04/30/ Active Capsules 25mg 60cap 1 tab by F33.1 Rhonda HCL 2018 s mouth iveth Martin MD for 1 week, then increase to twice daily Amlodipine 04/24/ Active Tablets 2.5mg 90tab 1 by mouth I25.119 Kirstie Besylate 2018 s every day OWEN Odonnell, INFRASTRUCTURE DESIGN ENGINEER Furosemide 04/24/ Active Tablets 20mg 1 by mouth R60.9 Kirstie 2018 every day Gavin as needed Ariana for edema OWEN, INFRASTRU[employer]URE DESIGN ENGINEER Diclofenac 03/26/ Active Gel 1% 200gm apply 4g Marybeth Sodium 2017 to Narendra Peña affected ankle twice a day Plavix 03/04/ Active Tablets 75mg 14tab 1 by mouth Tobias Horn 2018 s every day Narendra Gomez, [facility] Aspirin 02/17/ Active Tablets DR 81mg 1 by mouth I25.10 Kirstie 2018 every day OWEN Odonnell, INFRASTRU[employer]URE DESIGN ENGINEER Rosuvastatin 02/17/ Active Tablets 20mg 30tab 1 by mouth E78.2 Kirstie Calcium 2018 s every day OWEN Odonnell, INFRASTRU[employer]URE DESIGN ENGINEER Nitroglycerin 02/17/ Active Tablets 0.4mg 25tab 1 tablet I25.10 Kirstie 2018 Sub s under [place] tongue Lane, every 5 MSN, INFRASTRUCTURE DESIGN ENGINEER minutes x3 as needed for chest pain Olmesartan 02/17/ Active Tablets 20-12.5mg 30tab 1 tab by I10 Kirstie Medoxomil/[place] 2018 s mouth [place] chlorothiazide every day Ariana, MSN, INFRASTRU[employer]URE DESIGN ENGINEER Symbicort / Active Aerosol 160-4.5mcg 2 puff Unknown 0000 /Act twice a day Duoneb / Active Solution 0.5-2.5(3) as needed Unknown 0000 mg/3ML Vitamin B / Active 1 tablet Unknown Complex 0000 po daily Proair / Active Aerosol 108(90Base as needed Unknown Respiclick 0000 ) mcg/Act for shortness of breath, up to every 4 hours Escitalopram 03/26/ Hx Tablets 20mg 30tab 1 by mouth F33.1 Marybeth Oxalate 2018 - s every day Narendra Peña 2017 Furosemide 03/26/ Hx Tablets 20mg 30tab 1 by mouth R60.9 Marybeth 2018 - s every day Narendra Peña 2017 Wellbutrin XL 02/19/ Hx Tablets ER 150mg 60tab tab by F33.1 Marybeth 2018 24HR s mouth Narendra Peña twice daily Escitalopram 01/29/ Hx Tablets 10mg 30tab 1 by mouth F33.1 Marybeth Oxalate 2018 - s every day Narendra Peña 2017 Alprazolam 01/29/ Hx Tablets 0.25mg 20tab 1-2 tabs F41.9 Marybeth 2017 s every 6 Narendra Peña hours as needed anxiety attack.Ref erence #: [id number] Omeprazole 06/21/ Hx Capsules 40mg 30cap 1 tab by 786.59 Kirstie 2010 - DR s mouth [place] 01/29/ every day Ariana, 2018 MSN, IN[employer]RASTRU[employer]URE DESIGN ENGINEER Ambien 03/14/ Hx Tablets 5mg 30tab 1 po qhs 786.59 Ezequiel Proctor 2010 s prn sleep MD Nida, PhD Ranexa 03/14/ Hx Tablets ER 1000mg 60tab Take One 414.01 Ezequiel Proctor 2010 - 12HR s Tablet By MD Nida, 01/29/ Mouth PhD 2018 Twice Daily Ranexa 02/19/ Hx Tablets ER 500mg 60tab 1 po bid 786.05 Kirstie 2010 - 12HR s [place] 03/14/ Ariana, 2010 MSN, INFRASTRU[employer]URE DESIGN ENGINEER Plavix 01/22/ Hx Tablets 75mg 30tab 1 po qd 414.01 Ezequiel Proctor 2011 - s MD Nida, 01/29/ PhD 2018 Nitroglycerin 01/22/ Hx Tablets 0.4mg 25tab 1 tab prn 414.01 Ezequiel Proctor 2010 - Sub s chest MD Nida, 01/29/ pain, january PhD 2017 repeat q 5 minutes x3 Isosorbide 01/22/ Hx Tablets ER 30mg 30tab Take One 414.01 Ezequiel Proctor Mononitrate ER 2010 - 24HR s Tablet By MD Nida, Mouth PhD 2017 Every Day Plavix 07/04/ Hx Tablets 75mg 90.0t 1 po qd 786.[address], OWEN, INFRASTRU[employer]URE DESIGN ENGINEER Aspirin / Hx Tablets 325mg 1 po qd Kirstie - Lane, 2017 MSN, INFRASTRUCTURE DESIGN ENGINEER Crestor / Hx Tablets 10mg 90tab 1 po qd Kirstie s Gavin Lane, MSN, INFRASTRUCTURE DESIGN ENGINEER Bystolic / Hx Tablets 5mg 30tab tab po qd Kirstie - s etta Lane, 2017 MSN, INFRASTRUCTURE DESIGN ENGINEER Prozac / Hx Capsules 40mg 1 po bid Kirstie - yd2017 MSN, INFRASTRU[employer]URE DESIGN ENGINEER Lortab 5 / Hx Tablets 5-500mg 20tab 1-2 po Kirstie s q4-6h prn Gavin [address], MSN, INFRASTRU[employer]URE DESIGN ENGINEER Furosemide / Hx Tablets 40mg 180ta 1 po qd Unknown 0000 - bs 2017 Vitamin B / Hx Tablets 1 po qd Unknown Complex - 2010 Crestor / Hx Tablets 20mg 1 po qd Unknown - 2017 Albuterol / Hx As needed Unknown Inhaler 0000 Probiotic / Hx 1 cap po Unknown 0000 daily otc Vital Signs Date Vital Result Comment 04/30/2018 BP Systolic 122 mmHg BP Diastolic 74 mmHg Heart Rate 89 /min Respiratory Rate 20 /min Height 66 inches 5'6" Weight 273.00 lb BMI (Body Mass Index) 44.1 kg/m2 BSA (Body Surface Area) 2.28 m2 [place] body weight in kilograms 59 O2 % BldC Oximetry 94 % 04/24/2018 BP Systolic Sitting Left Arm 124 mmHg BP Diastolic Sitting Left Arm 80 mmHg Heart Rate 64 /min Respiratory Rate 18 /min Height 66 inches 5'6" Weight 283.00 lb BMI (Body Mass Index) 45.7 kg/m2 BSA (Body Surface Area) 2.32 m2 [place] body weight in kilograms 59 O2 % [...] kg/m2 BSA (Body Surface Area) 2.33 m2 [place] body weight in kilograms 59 O2 % BldC Oximetry 97 % Ra 01/29/2018 BP Systolic Sitting Left Arm 120 mmHg BP Diastolic Sitting Left Arm 68 mmHg Body Temperature 98.2 F Heart Rate 82 /min Height 66 inches 5'6" Weight 287.00 lb BMI (Body Mass Index) 46.3 kg/m2 BSA (Body Surface Area) 2.33 m2 [place] body weight in kilograms 59 O2 % [...] Y 1 Reflex add FT4? Y 1 Comprehensive Metabolic Panel 02/17/2018 Glucose 93 mg/dL [...] Y 3 Reflex add FT4? Y 3 CBS W/Automated Diff 02/17/2018 White Blood Count [...] 3 Lymph % 32.9 % 20.0-42.0 3 Lucas % 6.3 % 4.3-13.2 3 Eo% 2.5 % 0.0-6.6 3 Bas% 0.2 % 0.0-1.1 3 Neut# 4.82 K/uL 1.8-7.0 3 Lymph # 2.73 K/uL 1.0-4.0 3 Lucas # 0.52 K/uL 0.3-0.9 3 Eos # 0.21 K/uL 0.0-0.5 3 Baso # 0.02 K/uL 0.0-0.1 3 Laboratory test finding 07/16/2014 Thyroid Stim [...] 6.0 % 4.8-6.0 10 eAG 126 mg/dL Basic Metabolic Panel 01/22/2011 Glucose 105 mg/dL 76-115 BUN 13 mg/dL 5-23 Creatinine 1.1 mg/dL 0.5-1.4 Glom Filtration Rate, Estimate 57 mL/min >60 If >60 mL/min >60 11 BUN/Creat 11.8 Sodium 141 mEq/L 136-145 Potassium 3.3 mEq/L Low 3.5-5.1 Chloride 104 mEq/L 98-107 Carbon Dioxide 30 mEq/L 21-32 Anion Gap 10 mEq/L 8-16 Calcium 8.9 mg/dL 8.5-10.1 CBS W/Automated Diff 01/22/2011 White Blood Count [...] % 40.4-72.8 Lymph % 29.1 % 17.0-46.1 Lucas % 7.3 % 4.3-13.2 Eo% 1.1 % 0.0-6.6 Bas% 0.2 % 0.0-1.1 Neut# 5.62 K/uL 1.0-7.0 Lymph # 2.63 K/uL 0.8-3.4 Lucas # 0.66 K/uL 0.3-0.9 Eos # 0.10 K/uL 0.0-0.5 Baso # 0.02 K/uL 0.0-0.1 Red Cell Distri Width SD 43.2 fl 3-47 Basic Metabolic Panel 07/06/2010 Glucose 111 mg/dL [...] % 40.4-72.8 Lymph % 27.6 % 17.0-46.1 Lucas % 6.6 % 4.3-13.2 Eo% 2.2 % 0.0-6.6 Bas% 0.3 % 0.0-1.1 Neut# 6.0 K/uL 1.0-7.0 Lymph # 2.6 K/uL 0.8-3.4 Lucas # 0.6 K/uL 0.3-0.9 Eos # 0.2 [...] [email or web address]. Procedures Date CPT Code Description Status 04/24/2018 15070 EKG-Tracing And Report Completed 02/28/2018 44064 Stress Test Interpre And Report Only Completed 02/28/2018 26193 Stress Test Physician Super Only Completed 02/28/2018 00633 Myocardial Imaging Tomographic Multiple Study AT Rest Completed Or Stress 02/17/2018 58475 EKG-Tracing And Report Completed 07/16/2014 61760 EKG Interpretation And Report Only Completed 03/14/2011 15197 Event Monitor Inter/Review Only Completed 03/14/2011 01752 EKG-Tracing And Report Completed 03/14/2011 56272 EKG-Tracing And Report Completed 01/15/2011 24839 Echocardiogram Complete Completed 08/18/2010 65388 Stress Test Interpre And Report Only Completed 08/18/2010 14696 Stress Test Physician Super Only Completed 08/18/2010 07509 Myocardial Imaging Tomographic Multiple Study AT Rest Completed Or Stress 07/24/2010 32406 EKG-Tracing And Report Completed 07/04/2010 07116 EKG-Tracing And Report Completed 06/26/2010 32423 Stress Test Interpre And Report Only Completed 06/26/2010 39004 Stress Test Physician Super Only Completed 06/26/2010 34087 Myocardial Imaging Tomographic Multiple Study AT Rest Completed Or Stress Encounters Type Date Location Provider CPT E/M Dx Office Visit 04/24/2018 8:40a Cardiology Office Kirstie Alonso 78403 I25.119 Ariana, MSN, INFRASTRUCTURE DESIGN ENGINEER I10 E78.2 R60.9 E66.9 Office Visit 03/26/2018 1:00p Family Medicine DOLORES Helms 85444 F33.1 Z72.0 F41.9 E66.9 R60.9 I10 Office Visit 02/19/2018 1:15p Family Medicine DOLORES Helms 62315 I10 F33.1 Z72.0 F41.9 E66.9 Office Visit 02/17/2018 11:20a Cardiology Office Kirstie Lane, 04893 R07.9 MSN, INFRASTRUCTURE DESIGN ENGINEER I25.10 I10 E78.2 Office Visit 01/29/2018 1:45p Family Medicine DOLORES Helms 91392 F33.1 Z72.0 F41.9 I25.10 Office Visit 07/15/2014 3:08p [facility] Jeremias Durant M.D. 24262 427.89 [facility] 780.4 Office Visit 07/15/2014 1:59p [place] [address] 427.89 780.4 Office Visit 06/21/2011 9:20a Cardiology Office Kirstie Lane, 20817 786.59 MSN, INFRASTRUCTURE DESIGN ENGINEER 414.01 401.1 272.2 Office Visit 03/14/2011 1:40p Cardiology Office RAE Francis 33321 414.01 401.1 786.59 272.2 307.49 785.1 Office Visit 02/19/2011 1:40p Cardiology Office [address]irstie [address], [address]81 786.05 MSN, INFRASTRUCTURE DESIGN ENGINEER 414.01 401.1 272.4 305.1 Office Visit 01/22/2011 2:00p Cardiology Office Aleisha Khan, ANP 87091 414.01 401.1 305.1 786.05 Office Visit 08/23/2010 3:30p Cardiology Office Tobiasrayne Gomez, 40311 414.01 Narendra, [facility] 401.1 305.1 786.05 278.01 Office Visit 07/24/2010 2:00p Cardiology Office Kirstie Lane, 62835 414.01 MSN, INFRASTRUCTURE DESIGN ENGINEER 511.9 272.2 401.1 305.1 Office Visit 07/04/2010 1:20p Cardiology Office Kirstie Lane, 13022 786.05 MSN, INFRASTRUCTURE DESIGN ENGINEER 272.4 401.1 278.01 305.1 794.30 Plan of Care Future Appointment(s):06/11/2018 1:45 pm - DOLORES Helms at [facility]05/08/2018 8:20 am - Kirstie Lane, MSN, INFRASTRUCTURE DESIGN ENGINEER at Cardiology [id number]/30/2018 - Gisella Kim PAF33.1 Major depressive disorder, recurrent, moderateNew Medication:Escitalopram Oxalate 20 mgNortriptyline HCL 25 mgComments :Med change pending. Will nancy with the plan. and then we should follow up in 6 weeks.Follow up:6 weeks. 1 [id number] Obesity, unspecifiedComments:10 pound weight loss. We do want you to lose weight. Work on healthy diet. Regular exercise.I10 Essential (primary) hypertensionComments:Looks good today.E78.2 Mixed [id number] Tobacco useComments:Encouraged smoking cessation.Keep cutting down. Risks discussed.Outside help is available by [email or web address] Encounter for immunizationImmunizations/Injections: Influenza Virus Vaccine, Quadrivalent, Split, Pres Free 36 Mos+
[2018-05-29 18:43] VITALS: BP 126/70
--- NOTE | 2018-05-29 19:53 | UC ---
Respiratory Complaint HPI - HPI Summary HPI Summary: 52-year-old female with history of asthma presents with onset of body aches, general malaise, bilateral ear pain, sore throat, and a nonproductive cough yesterday. Associated with subjective fever, chills, and mild shortness of breath. Denies chest pain, wheezing, dysphasia, abdominal pain, nausea, vomiting, diarrhea, dysuria, frequency, and or urgency. 20-30 year half pack a day smoker. States has used albuterol inhaler couple times. Last used last evening. - History of Current Complaint Chief Complaint: UCGeneralIllness Stated Complaint: FEVER/FLU SYMP Time Seen by Provider: 05/29/18 19:31 Hx Obtained From: Patient Onset/Duration: Gradual Onset, Lasting Days - 1 Severity Initially: Moderate Severity Currently: Moderate Pain Intensity: 8 Aggravating Factors: Nothing Alleviating Factors: Nothing Associated Signs And Symptoms: Positive: Dyspnea, Fever, Chills, URI, Hoarseness. Negative: Wheezing, Hemoptysis, Dizziness, Sinus Discomfort - Allergies/Home Medications Allergies/Adverse Reactions: Allergies Allergy/AdvReac Type Severity Reaction Status Date / Time Sulfa (Sulfonamide Allergy Hives Verified 05/29/18 18:33 Antibiotics) ketorolac [From Toradol] AdvReac See Comment Verified 05/29/18 18:33 metoclopramide [From Reglan] AdvReac See Comment Verified 05/29/18 18:33 Home Medications: Home Medications Amlodipine Besylate [Norvasc 2.5 mg tab] 2.5 mg PO DAILY 05/29/18 [History Confirmed 05/29/18] Aspirin 81 mg PO DAILY 05/29/18 [History Confirmed 05/29/18] Clopidogrel TAB* [Plavix TAB*] 75 mg PO DAILY 05/29/18 [History Confirmed ] Escitalopram Oxalate [Lexapro 20 mg] 20 mg PO DAILY 05/29/18 [History Confirmed 05/29/18] Losartan/Hydrochlorothiazide [Losartan-Hctz 50-12.5 mg Tab] 1 tab PO DAILY 05/29 [History Confirmed 05/29/18] Nortriptyline CAP* [Nortriptylline CAP*] 10 mg PO BEDTIME 05/29/18 [History Confirmed 05/29/18] Ranolazine (NF) [Ranexa (NF)] 500 mg PO BID 05/29/18 [History Confirmed 05/29/18 ] Rosuvastatin Calcium [Crestor] 20 mg PO DAILY 05/29/18 [History Confirmed ] PMH/Surg Hx/FS Hx/Imm Hx Endocrine History: Dyslipidemia Cardiovascular History: Cardiac Disease, Hypertension, Myocardial Infarction Respiratory History: Asthma - Surgical History Surgical History: Yes Surgery Procedure, Year, and Place: Quintuple Bypass, 2009, [facility]; Right Knee Arthroscopy, ~1999, [place]; Facial Reconstruction s/p Accident, ~1985, [facility]. cardiac stent 01/2018 - Family History Known Family History: Positive: Respiratory Disease - Social History Occupation: Employed Full-time Lives: With Family Alcohol Use: Occasionally Substance Use Type: None Smoking Status (MU): Heavy Every Day Tobacco Smoker Type: Cigarettes Amount Used/How Often: 1/2 PPD Length of Time of Smoking/Using Tobacco: Since Age 18 Have You Smoked in the Last Year: Yes - Immunization History Most Recent Influenza Vaccination: Not the Season Review of Systems Constitutional: Fever, Chills, Fatigue Skin: Negative Eyes: Negative ENT: Sore Throat, Ear Ache Respiratory: Shortness Of Breath, Cough - Nonproductive nonproductive Cardiovascular: Negative Gastrointestinal: Negative Genitourinary: Negative Is Patient Immunocompromised?: No All Other Systems Reviewed And Are Negative: Yes Physical Exam Triage Information Reviewed: Yes Appearance: No Pain Distress, Ill-Appearing - Mildly, Obese Vital Signs: Initial Vital Signs Temp 98 F 05/29/18 18:37 Pulse 83 05/29/18 18:37 Resp 20 05/29/18 18:37 BP 126/70 05/29/18 18:37 Pulse Ox 98 05/29/18 18:37 Vital Signs Reviewed: Yes Eyes: Positive: Conjunctiva Clear. Negative: Discharge ENT: Positive: Hearing grossly normal, Pharyngeal erythema - Mild with postnasal drip, Nasal congestion, TMs normal, Uvula midline. Negative: Nasal drainage, Tonsillar swelling, Tonsillar exudate Neck: Positive: Supple, Nontender, No Lymphadenopathy Respiratory: Positive: Lungs clear, Normal breath sounds, No respiratory distress, Other: - Nonproductive cough. Negative: Crackles, Rhonchi, Wheezing Cardiovascular: Positive: RRR, No Murmur Neurological: Positive: Alert Skin Exam: Normal UC Diagnostic Evaluation - Laboratory O2 Sat by Pulse Oximetry: 98 Respiratory Course/Dx - Course Course Of Treatment: 52 year old female with history of asthma presents with 1 day of URI symptoms. Exam consistent with URI vs bronchitis. No active wheezing. Considering duration of symptoms recommend symptomatic treatment at this time. - Differential Dx/Diagnosis Differential Diagnosis/HQI/PQRI: Bronchitis, Influenza, Lower Resp Infection Provider Diagnoses: acute bronchtis Discharge - Sign-Out/Discharge Documenting (check all that apply): Patient Departure All imaging exams completed and their final reports reviewed: No Studies - Discharge Plan Condition: Stable Disposition: HOME Prescriptions: Benzonatate CAP* [Tessalon 100 MG CAP*] 100 mg PO TID PRN #30 cap PRN Reason: Cough Patient Education Materials: Acute Bronchitis (ED) Referrals: Gisella Kim PA [Primary Care Provider] - 5 Days (If no improvement in symptoms. ) Additional Instructions: Your symptoms appear to because by a viral infection. Viral infections do not respond to antibiotics and therefore are not recommended at this time. Viral infections typically run their course of her 7-10 days. Make sure you're drinking plenty of fluids and staying well hydrated. Use acetaminophen (Tylenol) according to directions as needed for aches pains or fever. Use Tessalon Perles 1 capsule every 8 hours as needed for cough. Salt water gargles several times a day for sore throat. Continue using your albuterol inhaler as needed for any shortness of breath or wheezing. It is recommended that you consider stopping smoking as this can worsen your symptoms. Follow-up with your primary care provider in 5 days if symptoms have not improved. Seek immediate medical attention in the emergency room if you have persistent fever greater than 100.5 F despite taking acetaminophen, have chest pain, worsening shortness of breath, persistent wheezing despite using her albuterol inhaler, he become weak or dizzy, or have any worsening of symptoms. - Billing Disposition and Condition Condition: STABLE Disposition: Home
== END 2018-05-29 19:58 | disposition home or self-care (01) ==
LOC: UCCORT 17:36
DX: J20.9 Acute bronchitis, unspecified (principal); F17.210 Nicotine dependence, cigarettes, uncomplicated; Z88.1 Allergy status to other antibiotic agents; Z88.6 Allergy status to analgesic agent; Z88.8 Allergy status to other drugs, medicaments and biological substances
CPT/HCPCS: 99212; G0463